=== PATIENT | male | born 1995 | race African-American/Black ===

== ENCOUNTER 2018-09-06 00:15 | Emergency (ER) | payer OTHER ==
[~2018-09-06] VITALS: Ht 175.3 cm; Wt 72.6 kg
[2018-09-06 00:18] VITALS: BP 139/66
[2018-09-06] MEDS ORDERED: BACTRIM DS TAB1 EACH PO (01:11)
== END 2018-09-06 01:15 | disposition home or self-care (01) ==
LOC: ER 00:15
DX: S61.412A Laceration without foreign body of left hand, initial encounter (principal); F17.210 Nicotine dependence, cigarettes, uncomplicated; X58.XXXA Exposure to other specified factors, initial encounter; Y92.89 Other specified places as the place of occurrence of the external cause; Y93.89 Activity, other specified; Y99.8 Other external cause status